=== PATIENT | female | born 1970 | race American Indian/Alaskan Native ===

== ENCOUNTER 2017-12-05 10:04 | Outpatient (CLI) | payer BC ==
--- NOTE | 2017-12-05 12:10 | Fluoroscopy Report ---
UPPER GI AIR CONTRAST: History: Gastroesophageal reflux disease without esophagitis. FINDINGS: 18 fluoroscopic images were captured during this exam. The patient ingested barium without difficulty. The esophageal contour is normal. There are no ulcerations or filling defects seen in the esophagus. There is normal esophageal motility. No hiatal hernia. One episode of reflux into the distal esophagus was witnessed during this exam. Gastric sleeve surgical changes are suspected, correlate with history. The gastric contour and position appear normal. There are no ulcerations or filling defects in the stomach. The duodenal bulb and duodenal sweep appear normal. IMPRESSION: There is evidence of minimal gastroesophageal reflux as described. Otherwise, unremarkable air-contrast upper GI series.
== END 2017-12-05 10:05 | disposition home or self-care (01) ==
LOC: FLUORO 10:04
PROVIDERS: ATTEND Specialist
DX: K21.9 Gastro-esophageal reflux disease without esophagitis (principal)
CPT/HCPCS: 74247

== ENCOUNTER 2018-04-12 11:00 | Outpatient (CLI) | payer BC | END 2018-04-12 11:01 | disposition home or self-care (01) | LOC: SLR 11:00 | PROVIDERS: ATTEND Otolaryngology | DX: G47.33 Obstructive sleep apnea (adult) (pediatric) (principal); G47.31 Primary central sleep apnea | CPT/HCPCS: 95811 ==